=== PATIENT | female | born 1980 | race Caucasian/White ===

== ENCOUNTER 2016-12-24 09:11 | Inpatient (IN) ==
--- NOTE | 2016-12-23 20:50 | Discharge Summary ---
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 (3) Migraines Priority: Secondary Status: Chronic Qualifiers: Migraine type: unspecified Status migrainosus presence: without status migrainosus Intractability: not intractable Qualified Code(s): G43.909 - Migraine, unspecified, not intractable, without status migrainosus - Discharge Medications Home Medications: Melatonin 10 mg PO HS PRN 01/29/16 [History] DiphenhydraMINE [Benadryl] 25 - 50 mg PO HS PRN 11/26/16 [History] Ibuprofen [Motrin] 600 mg PO Q8HR PRN 12/24/16 [History] OxyCODONE Immed Rel [Roxicodone 5 MG] 5 mg PO Q4H PRN 12/24/16 [History] Allergies/Adverse Reactions: 3 Allergy/AdvReac Type Severity Reaction Status Date / Time acetaminophen [From Fioricet] AdvReac Anxiety Verified 12/21/16 00:43 butalbital [From Fioricet] AdvReac Anxiety Verified 12/21/16 00:43 caffeine [From Fioricet] AdvReac Anxiety Verified 12/21/16 00:43 droperidol AdvReac Anxiety Verified 12/21/16 00:43 etomidate AdvReac Seizure Verified 12/24/16 09:44 gabapentin AdvReac Headache Verified 12/24/16 10:07 ketamine AdvReac Hallucinati Verified 12/21/16 00:43 ng metoclopramide [From Reglan] AdvReac Agitated Verified 12/24/16 09:44 prochlorperazine AdvReac Agitated Verified 12/24/16 09:44 [From Compazine] Primary care physician: PCP NONE - Patient Status Disposition: Home, Self-Care Condition: Good - Discharge Instructions Follow Up With: NONE,PCP [Primary Care Provider] - - Hospital Course Hospital course: Ms. Justice is a 36 year old female - Time Spent with Patient Total time spent providing and/or coordinating discharge services: - VTE Documentation of Mechanical Device: Venous foot pump, device <Rod Sunshine - Last Filed: 12/25/16 08:38> Date of Encounter: 12/25/16 Time of Encounter: 08:37 - Discharge Diagnosis (1) Obesity (BMI 30.0-34.9) Priority: Secondary Status: Chronic (2) Dislocation of left shoulder joint Priority: Primary Status: Acute Qualifiers: Encounter type: subsequent encounter Qualified Code(s): S43.005D - Unspecified dislocation of left shoulder joint, subsequent encounter (3) Selma-Danlos syndrome Priority: Secondary Status: Chronic (4) Migraines Priority: Secondary Status: Chronic Qualifiers: Migraine type: unspecified Status migrainosus presence: without status migrainosus Intractability: not intractable Qualified Code(s): G43.909 - Migraine, unspecified, not intractable, without status migrainosus Primary care physician: PCP NONE - Patient Status Functional capacity at discharge: independent ambulation Overall status at discharge: patient is progressing back to baseline - Hospital Course Hospital course: Ms. Justice is a 36 year old female Status post left total shoulder replacement. The patient had an uneventful postoperative course. They received antibiotics and physical therapy and were discharged in stable condition. There will follow -up in the office in 2 weeks. - Time Spent with Patient Total time spent providing and/or coordinating discharge services:
[2016-12-24] MEDS ORDERED: CeFAZolin Pre 2,000 MG/100 ML 2,000 MG/100 ML BAG IVPB ONE (09:40)
[2016-12-24] MEDS ORDERED: Lidocaine -MPF 1% 2 ML VIAL ID ONE (09:40)
[2016-12-24] MEDS ORDERED: Ringers Solution, Lactated 1,000 ML IVC SCH ×3 (09:45→13:00)
--- NOTE | 2016-12-24 10:02 | History & Physical Report ---
Date of Encounter: 12/24/16 Time of Encounter: 10:01 24 Hour HP Update - Instructions Instructions: If the History and Physical is less than 30 days old and was completed prior to A.M. admission and or procedure and has NOT been updated on calendar day of procedure please complete this update prior to performing procedure. - Update Patient reports changes in Medical Condition: No Changes in examination, assessment, or condition: No Changes in Medication: No Preop tests/diagnostics Reviewed: Yes Surgery Remains Indicated: Yes Consent for Planned Operative Procedure(s) Verified: Yes - Pre-Operative Checklist Preoperative Checklist Indicated: No Prophylactic Antibiotic Ordered: Yes Is VTE Prophylaxis Indicated?: Yes
[2016-12-24] MEDS ORDERED: *HR* FentaNYL (PF) 100 MCG/2 ML VIAL ONE (10:06)
[2016-12-24] MEDS ORDERED: *HR* Propofol 200 MG/20 ML VIAL IVP ONE ×2 (10:06→10:58)
[2016-12-24] MEDS ORDERED: *HR* Midazolam HCl 2 MG/2 ML VIAL ONE (10:06)
[2016-12-24] MEDS ORDERED: ROPIVACAINE HCL/PF 0.5% 30 ML VIAL ONE (10:07)
[2016-12-24] MEDS ORDERED: Lidocaine -MPF 2% 2 ML VIAL ONE (10:07)
--- NOTE | 2016-12-24 10:07 | Anesthesia Evaluation PreOp ---
Date of Encounter: 12/24/16 Time of Encounter: 10:05 - Past History Planned Operation: L total shoulder Cardiac History: Denies any Significant Hx Pulmonary History: Denies Any Significant HX ETCHER ELECTROLYTIC History: Denies Any Significant HX Other Medical History: Other (Selma danlos, hx Sweet's syndrome) Anesthesia History: Problems (woke up in the middle of surgery previously; myoclonus etomidate, bad hallucinations ketamine) Alcohol Use: none Drug use: none Medications and Allergies Melatonin 10 mg PO HS PRN 01/29/16 [History] DiphenhydraMINE [Benadryl] 25 - 50 mg PO HS PRN 11/26/16 [History] Ibuprofen [Motrin] 600 mg PO Q8HR PRN 12/24/16 [History] OxyCODONE Immed Rel [Roxicodone 5 MG] 5 mg PO Q4H PRN 12/24/16 [History] 3 Allergy/AdvReac Type Severity Reaction Status Date / Time acetaminophen [From Fioricet] AdvReac Anxiety Verified 12/21/16 00:43 butalbital [From Fioricet] AdvReac Anxiety Verified 12/21/16 00:43 caffeine [From Fioricet] AdvReac Anxiety Verified 12/21/16 00:43 droperidol AdvReac Anxiety Verified 12/21/16 00:43 etomidate AdvReac Seizure Verified 12/24/16 09:44 gabapentin AdvReac Headache Verified 12/24/16 10:07 ketamine AdvReac Hallucinati Verified 12/21/16 00:43 ng metoclopramide [From Reglan] AdvReac Agitated Verified 12/24/16 09:44 prochlorperazine AdvReac Agitated Verified 12/24/16 09:44 [From Compazine] - Meds/Allergy Pre-op Review Medications Reviewed: Yes Allergies Reviewed: Yes Beta Blockers on Current Med List: No Anesthesia Results - Labs Laboratory Tests 12/22/16 12/22/16 14:49 14:49 WBC 7.1 Hgb 12.5 Hct 39.4 Plt Count 271 Sodium 138 Potassium 4.6 H Chloride 102 Carbon Dioxide 27 BUN 13 Creatinine 0.79 Est GFR ( Amer) > 60 Est GFR (Non-Af Amer) > 60 BUN/Creatinine Ratio 16 Glucose 157 H Calculated Osmolality 289 - Imaging EKG: report reviewed, image reviewed (SINUS RHYTHM NONSPECIFIC T-WAVE ABNORMALITY) Anesthesia Exam Last Vital Signs Temp 98.9 F 12/24/16 09:39 Pulse 82 12/24/16 09:39 Resp 18 12/24/16 09:39 BP 107/74 12/24/16 09:39 Pulse Ox 94 12/24/16 09:39 Weight: 96 kg NPO (# of Hours): >> 8 hrs - HEENT Pupil (Motor): Pupils equal, EOMI Mallampati: II Teeth: Normal Oral Opening: Less than or equal to 3 - ETCHER ELECTROLYTIC LOC: Oriented ETCHER ELECTROLYTIC Motor: Normal RUE, Normal LUE, Normal RLE, Normal LLE, Normal Face - Cardiac Rhythm: Regular Murmur: None - Pulmonary Breath Sounds: bilateral Clear Respiratory Effort: Symmetrical Anesthesia Assess/Plan ASA Score: 3 Modified [place] Scale for Level of Consciousness: Cooperative, oriented, and tranquil Anesthetic Plan: General, Regional, Precautions (FOI intubation (heavily sedated )) Monitoring Plan: Standard Monitors Recovery Plan: PACU
[2016-12-24] MEDS ORDERED: Plasma-Lyte A (PH 7.4) 1,000 ML IVC SCH (10:15)
--- NOTE | 2016-12-24 10:45 | Anesthesia Procedures ---
Date of Encounter: 12/24/16 Time of Encounter: 10:42 Procedures: Anesthesia - Nerve Block Procedure Date: 12/24/16 Time: 10:43 Pre-op Diagnosis: Left shoulder arthritis Surgical Procedure: L tot shoulder Checklist: Correct Patient Identifier Correct side: Left Blood Thinner: No Monitor Applied: EKG, BP, Pulse Oximetry Supplemental Oxygen via Nasal Cannula (L/min): 3 Sedation: Versed (mg): 2 Sedation: Fentanyl (mcg): 100 Indication: Post Op Analgesia Pre-op Neuro Deficits: No Block Type: Supraclavicular Catheter placed: No Sterile Technique: Yes Ultrasound used: Yes Anatomy identified: Yes Visual spread of Local: Yes Neuro Stimulation: No Blood on Needle Aspiration: No Smooth Injection of Local: Yes Pain with Injection of Local: No Prep: Chlorhexadine Needle: 22 x 50 mm Stimuplex Local: Ropivacaine (0.5) Volume (cc): 30 Number of Attempts: 1 Complications: None/effective block Vitals: Vital Signs/O2 Sat, Most Current Temp Pulse Resp BP Pulse Ox 98.9 F 81 15 114/82 99 12/24/16 09:39 12/24/16 10:29 12/24/16 10:29 12/24/16 10:29 12/24/16 10:29 Comments: aseptic, tolerated well, VSS
[2016-12-24] MEDS ORDERED: Dexamethasone 4 MG/ML VIAL ONE (11:07)
[2016-12-24] MEDS ORDERED: Ondansetron 4 MG/2 ML VIAL ONE (11:07)
[2016-12-24] MEDS ORDERED: EPHEDrine 50 MG/ML VIAL ONE (11:34)
[2016-12-24] MEDS ORDERED: *HR* HYDROmorphone (PF) 1 MG/ML SYRINGE IVP PRN (11:36)
--- NOTE | 2016-12-24 11:57 | Orthopedic Operative Note ---
Date of procedure: 12/24/16 Pre-op diagnosis: Dislocated left shoulder Post-op diagnosis: same Procedure: Procedure: Total Shoulder Replacment Reverse, left Estimated blood loss: 100 cc Hardware: Metal and polyethylene replacement: Arthrex medium glenoid baseplate , 2 4.5 screws. 1 6.5 screw, 39+4 glenosphere, 7 humeral stem, poly insert 3 constrained Exam Under anesthesia: Dislocated left shoulder easily reducible Procedural Notes: Patient with globally unstable left shoulder secondary to Selma-Danlos syndrome Operative procedure: The patient was brought to the operating room and placed on the operating room table. After general anesthesia was administered the operative shoulder was examined. Findings were noted. The patient was placed in the modified beachchair position. All pressure points were padded appropriately. And the head was stabilized in the neutral position. The operative extremity was prepped and draped in the sterile surgical fashion. The patient received IV antibiotics prior to skin incision. A standard deltopectoral approach was made to the operative shoulder. Incision was made to the skin and subcutaneous tissue,hemo stasis was obtained with Bovie cautery. Using careful blunt dissection the cephalic vein was identified and mobilized medially. The deltopectoral interval was developed and the clavipectoral fascia was incised. The subscap was released off the lesser tuberosity and tagged with #2 FiberWire suture subscap was irreparable. The humerus was already dislocated the humeral cut was made along the anatomic neck. Anterior and posterior Bankart retractors were placed to expose the glenoid. The glenoid guide was seated and the centering hole was made. It was reamed with the appropriate reamer. Medium baseplate was seated and secured with (2) 4.5 screws and one 6.5 screw. The baseplate was irrigated and dried and the 30 plus 4 Glenosphere was seated and secured with the Keen taper. The Keen taper was tested and found to be secure the humerus was redislocated and prepared with the diaphyseal reamers, followed by a broaching process up to the appropriate size 7 in the patient's anatomic version. The metaphyseal reamer was then utilized. Trial reduction found the shoulder to be relocatable. Trial components were removed and the appropriate 7 stem was impacted in place in the patient's anatomic version. Trial reduction found the shoulder to be relocatable and stable with the appropriate 3 constrained Trial component was removed and the real implant was seated and secured the shoulder was reduced. The shoulder had excellent motion and excellent stability and no evidence of dislocation. The deep tissue was irrigated with pulse irrigation. The PA closed the shoulder. The deltopectoral interval was closed with a running #1 PDS suture, subcutaneous tissue was irrigated and closed with 0 PDS suture, the skin was closed with Dermabond. The patient was placed in a sterile dressing, abduction brace and extubated. The patient was then transferred to the recovery room in stable condition. Anesthesia: NELSON Surgeon: Rod Sunshine Sales And Marketing Engineer: Kamilah Olsen Condition: stable Disposition: PACU
[2016-12-24 12:26] LABS: Hemoglobin 11.6 g/dL (11.5-15.4)
--- NOTE | 2016-12-24 12:26 | Anesthesia Evaluation Post Op ---
Date of Encounter: 12/24/16 Time of Encounter: 12:26 - Vital Signs Vital Signs: Vital Signs/O2 Sat/Glucose, Most Recent Temp Pulse Resp BP Pulse Ox 98.2 F 104 16 107/66 100 12/24/16 12:05 12/24/16 12:05 12/24/16 12:05 12/24/16 12:05 12/24/16 12:05 - Lungs Lungs: Clear Ascult./Percussion - Airway Airway: Non-obstructed - Cardiovascular Regular Rate - Mental Status Mental Status: Alert & Oriented, Answers Appropriately - Pain Pain Scale: 0 Pain Scale used: Numeric (1 - 10) - Nausea Vomiting Nausea Vomiting: Not Present - Hydration Hydration: NPO - Discharge PostOp Status: Transfer Patient to floor
[2016-12-24] MEDS: *HR* Promethazine 25 MG/ML VIAL IVP PRN ×2 (12:30→12:40)
[2016-12-24] MEDS ORDERED: *HR* Promethazine 25 MG/ML VIAL ONE (12:34)
[2016-12-24] MEDS ORDERED: Ringers Solution, Lactated 1,000 ML ONE (12:37)
[2016-12-24] MEDS ORDERED: Sennosides 8.6 MG TABLET PO PRN (12:47)
[2016-12-24] MEDS ORDERED: *HR* OxyCODONE Immed Rel 5 MG TABLET PO PRN (12:47)
[2016-12-24] MEDS ORDERED: Naloxone 0.4 MG/ML INJ IVP PRN (12:47)
[2016-12-24] MEDS ORDERED: Ondansetron 4 MG/2 ML VIAL IVP PRN (12:47)
[2016-12-24] MEDS ORDERED: Famotidine 20 MG/2 ML VIAL IVP PRN (13:18)
[2016-12-24] MEDS: *HR* HYDROmorphone (PF) 1 MG/ML SYRINGE IVP PRN ×3 (13:23→23:04)
[2016-12-24] MEDS: *HR* OxyCODONE Immed Rel 5 MG TABLET PO PRN ×2 (15:03→21:11)
[2016-12-24] MEDS: *HR* Enoxaparin 30 MG/0.3 ML SYRINGE SQ SCH (17:23)
[2016-12-24] MEDS: ceFAZolin 2,000 MG in D5% in Water 100 ML IVPB SCH (17:23)
[2016-12-24] MEDS ORDERED: *HR* Enoxaparin 30 MG/0.3 ML SYRINGE SQ SCH (18:00)
[2016-12-24] MEDS ORDERED: Temazepam 15 MG CAPSULE PO PRN (21:00)
[2016-12-24] MEDS ORDERED: MOM Conc 10 ML UD.LIQ PO PRN (21:00)
[2016-12-24] MEDS ORDERED: Melatonin 3 MG TABLET PO PRN (21:00)
[2016-12-25] MEDS: ceFAZolin 2,000 MG in D5% in Water 100 ML IVPB SCH (01:05)
[2016-12-25] MEDS: *HR* HYDROmorphone (PF) 1 MG/ML SYRINGE IVP PRN ×5 (01:05→10:02)
[2016-12-25] MEDS: *HR* OxyCODONE Immed Rel 5 MG TABLET PO PRN ×3 (02:12→11:46)
[2016-12-25] MEDS ORDERED: Ketorolac 30 MG/ML VIAL IVP PRN ×2 (03:32→04:37)
[2016-12-25] MEDS ORDERED: Acetaminophen IV 1,000 MG/100 ML INFUS..BTL IVPB ONE (03:33)
[2016-12-25] MEDS: Acetaminophen IV 1,000 MG/100 ML INFUS..BTL IVPB SCH ×2 (05:08→13:16)
[2016-12-25] MEDS: *HR* Enoxaparin 30 MG/0.3 ML SYRINGE SQ SCH (05:13)
[2016-12-25 06:17] LABS: Hematocrit 32.6 % (35.3-44.9); Hemoglobin 11.1 g/dL (11.5-15.4)
[2016-12-25 07:47] VITALS: BP 116/72
--- NOTE | 2016-12-25 08:39 | Orthopedics Progress Note ---
Date of Encounter: 12/25/16 Time of Encounter: 08:38 - Assessment and Plan (1) Obesity (BMI 30.0-34.9) Current Visit: Yes Status: Chronic (2) Dislocation of left shoulder joint Current Visit: No Status: Acute Qualifiers: Encounter type: subsequent encounter Qualified Code(s): S43.005D - Unspecified dislocation of left shoulder joint, subsequent encounter (3) Selma-Danlos syndrome Current Visit: No Status: Chronic (4) Migraines Current Visit: No Status: Chronic Qualifiers: Migraine type: unspecified Status migrainosus presence: without status migrainosus Intractability: not intractable Qualified Code(s): G43.909 - Migraine, unspecified, not intractable, without status migrainosus Subjective Interval history: Patient was seen this morning doing well complains of left shoulder pain after block or off. Afebrile vital signs stable. Operative extremity: Neurovascularly intact Dressing clean dry and intact Calves nontender Assessment and plan: Continue with postoperative care Discharged today Objective Vital signs: Vital Signs Temp Pulse Resp BP Pulse Ox 12/25/16 07:47 98.9 F 80 16 116/72 97 12/25/16 04:45 99.0 F 91 18 116/76 95 12/25/16 01:18 116/72 12/24/16 23:27 99.0 F 89 17 91/59 94 12/24/16 19:47 98.0 F 90 18 100/69 95 12/24/16 16:00 98.2 F 103 15 100/68 95 12/24/16 15:09 97.7 F 93 14 113/75 96 12/24/16 14:05 97.6 F 91 18 110/75 95 12/24/16 13:36 97.6 F 91 16 118/81 96 12/24/16 13:27 97 12/24/16 12:53 99 16 119/88 98 12/24/16 12:48 97.5 F L 92 14 124/85 96 12/24/16 12:45 98 16 122/84 98 12/24/16 12:35 98.2 F 97 14 122/82 95 12/24/16 12:25 92 18 123/80 94 12/24/16 12:15 97 18 123/76 95 12/24/16 12:05 98.2 F 104 16 107/66 100 12/24/16 10:29 81 15 114/82 99 12/24/16 09:39 98.9 F 82 18 107/74 94 Intake and Output 12/24/16 12/25/16 12/25/16 23:59 07:59 15:59 Intake Total 600 / 600 580 / 580 Balance 600 / 600 580 / 580 Intake: IV Fluids 100 / 100 100 / 100 Ofirmev 1,000 mg/100 ml 1,000 100 / 100 mg In 100 ml @ 400 mls/hr IVPB ONCE ONE Rx#:[id number] Ancef 2,000 MG In Dextrose 5% 100 / 100 100 ML @ 200 mls/hr IVPB Q8H HYUN Rx#:[id number] Oral 500 / 500 480 / 480 Other: # Voids 5 1 - Labs CBC & BMP: 12/25/16 05:08 Labs: Abnormal lab results Hgb 11.1 g/dL (11.5-15.4) L 12/25/16 05:08 Hct 32.6 % (35.3-44.9) L 12/25/16 05:08 - VTE Documentation of Mechanical Device: Intermittent pneumatic compression device Consult Discharge Plan - Plan Referrals: NONE,PCP [Primary Care Provider] -
--- NOTE | 2016-12-25 12:55 | Event Note ---
Date of Encounter: 12/25/16 Time of Encounter: 12:51 PCR - Left TSR-r - Selma Yeh POD#.1 Labs: 12/25 - stable Patient seen at bedside. Pain control: discussed in depth 12/25 - Lidoderm patch added, D/C'ing IV pain medication this afternoon We discussed pain control in depth - will write new RX to allow for appropriate control of acute pain. REgulations and laws reviewed with patient. Patient voiced understanding. Participating in PT. All questions and concerns addressed. Educated on use of incentive spirometer, ambulation, and hydration. Patient educated on post-operative restrictions and care. Addressed: Pain control, new RX printed. D/C plan: Home 12/26 with HH Patient has Selma Dangins, with multiple shoulder dislocations, a recent shoulder arthroscopy, that resulted in a dislocation. She then underwent a Left TSR-reverse ball and socket to correct these issues. Patient would benefit from a resin painter; however at this time she does have one. We will aim to control her acute pain through Oxycodone - 2 tabs every 4 hours for the next 3-5 days, with the intention to taper down to 1 tablet over this time. This was discussed in depth with the patient. She also is taking Tylenol, NSAIDS for breakthrough pain.
--- NOTE | 2016-12-25 22:19 | Physician Discharge Referral ---
Home Health/Hosp Referral Info Transfer to: Home Health Attending Provider: Dr. Rod Sunshine - Diagnosis (1) Status post total shoulder replacement Priority: Primary Status: Acute (2) Dislocation of left shoulder joint Priority: Primary Status: Acute (3) Selma-Danlos syndrome Priority: Secondary Status: Chronic (4) Migraines Priority: Secondary Status: Chronic - Respiratory Orders Smoking Cessation: Smoking cessation has been advised. For more information, call the [place] Tobacco Quit Line at 8-334-VATB-NOW. - Dressing/Wound Care Site: left shoulder Type of Dressing/Treatments w/Frequency: Opsite dressing, leave intact until first post-operative visit. If dressing becomes greater than 50% saturated, contact office, remove dressing and place appropriate dressing in its place. Do not allow for dressing to get wet. - Diet/Nutrition Diet/Nutrition Orders: Regular - Activity Activity Orders: Up ad bob, Ambulate, Chair Activity: List: Leave brace in place. Minimal shoulder motion. Encourage elbow, wrist, and hand ROM. - Services Needed Following services are medically necessary services: Physical Therapy, Occupational Therapy - Transfer Medications Prescriptions: OxyCODONE Immed Rel [Roxicodone 5 MG] 5 - 10 mg PO Q4HR PRN #60 tablet PRN Reason: Pain Home Medications: Melatonin 10 mg PO HS PRN 01/29/16 [History] DiphenhydraMINE [Benadryl] 25 - 50 mg PO HS PRN 11/26/16 [History] Ibuprofen [Motrin] 600 mg PO Q8HR PRN 12/24/16 [History] OxyCODONE Immed Rel [Roxicodone 5 MG] 5 mg PO Q4H PRN 12/24/16 [History] OxyCODONE Immed Rel [Roxicodone 5 MG] 5 - 10 mg PO Q4HR PRN #60 tablet 12/25/16 [Rx] Allergies/Adverse Reactions: 3 Allergy/AdvReac Type Severity Reaction Status Date / Time acetaminophen [From Fioricet] AdvReac Anxiety Verified 12/21/16 00:43 butalbital [From Fioricet] AdvReac Anxiety Verified 12/21/16 00:43 caffeine [From Fioricet] AdvReac Anxiety Verified 12/21/16 00:43 droperidol AdvReac Anxiety Verified 12/21/16 00:43 etomidate AdvReac Seizure Verified 12/24/16 09:44 gabapentin AdvReac Headache Verified 12/24/16 10:07 ketamine AdvReac Hallucinati Verified 12/21/16 00:43 ng metoclopramide [From Reglan] AdvReac Agitated Verified 12/24/16 09:44 prochlorperazine AdvReac Agitated Verified 12/24/16 09:44 [From Compazine] Certification: Further, I certify that my clinical findings support that this patient is homebound (i.e. absences from home require considerable and taxing effort and are for medical reasons or congregation services or infrequently or short duration when for other reasons) because: Homebound Reason: Post-surgery restriction and or conditions limit ability to leave home Attestation: My signature below is to certify that this patient is under my care and that I, or nurse practitioner, or a physician customer service assistant working with me, has a face-to- face encounter with this patient.
--- NOTE | 2016-12-25 22:24 | Physician Discharge Referral ---
<Kamilah Olsen E - Last Filed: 12/29/16 16:12> Home Health/Hosp Referral Info Transfer to: Home Health Attending Provider: Dr. 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 For more information, call the [place] Tobacco Quit Line at 6-939-VFMV-NOW. - Dressing/Wound Care Site: left shoulder Type of Dressing/Treatments w/Frequency: Leave dressing in place Do not get wet If dressing becomes greater than 50% saturated then change to appropriate replacement and contact [facility] office - Diet/Nutrition Diet/Nutrition Orders: Regular - Activity Activity Orders: Up ad bob, Ambulate Activity: List: Total shoulder precautions Limited use left upper extremity - continue in sling as directed. Elbow and Wrist ROM - NO strengthening Prineo to be removed at Post op day 14 - Services Needed Following services are medically necessary services: Nursing, Home Health Aide - Transfer Medications Prescriptions: OxyCODONE Immed Rel [Roxicodone 5 MG] 5 - 10 mg PO Q4HR PRN #60 tablet PRN Reason: Pain Home Medications: Melatonin 10 mg PO HS PRN 01/29/16 [History] DiphenhydraMINE [Benadryl] 25 - 50 mg PO HS PRN 11/26/16 [History] Ibuprofen [Motrin] 600 mg PO Q8HR PRN 12/24/16 [History] OxyCODONE Immed Rel [Roxicodone 5 MG] 5 mg PO Q4H PRN 12/24/16 [History] OxyCODONE Immed Rel [Roxicodone 5 MG] 5 - 10 mg PO Q4HR PRN #60 tablet 12/25/16 [Rx] Allergies/Adverse Reactions: 3 Allergy/AdvReac Type Severity Reaction Status Date / Time acetaminophen [From Fioricet] AdvReac Anxiety Verified 12/21/16 00:43 butalbital [From Fioricet] AdvReac Anxiety Verified 12/21/16 00:43 caffeine [From Fioricet] AdvReac Anxiety Verified 12/21/16 00:43 droperidol AdvReac Anxiety Verified 12/21/16 00:43 etomidate AdvReac Seizure Verified 12/24/16 09:44 gabapentin AdvReac Headache Verified 12/24/16 10:07 ketamine AdvReac Hallucinati Verified 12/21/16 00:43 ng metoclopramide [From Reglan] AdvReac Agitated Verified 12/24/16 09:44 prochlorperazine AdvReac Agitated Verified 12/24/16 09:44 [From Compazine] Certification: Further, I certify that my clinical findings support that this patient is homebound (i.e. absences from home require considerable and taxing effort and are for medical reasons or jewish services or infrequently or short duration when for other reasons) because: Attestation: My signature below is to certify that this patient is under my care and that I, or nurse practitioner, or a physician banking assistant working with me, has a face-to- face encounter with this patient. <Rod Sunshine - Last Filed: 12/31/16 07:50> - Diagnosis (1) Obesity (BMI 30.0-34.9) Status: Chronic (2) Dislocation of left shoulder joint Status: Acute (3) Selma-Danlos syndrome Status: Chronic (4) Migraines Status: Chronic - Respiratory Orders Smoking Cessation: Smoking cessation has been advised. For more information, call the [place] Tobacco Quit Line at 2-746-LVZR-NOW. Certification: Further, I certify that my clinical findings support that this patient is homebound (i.e. absences from home require considerable and taxing effort and are for medical reasons or jewish services or infrequently or short duration when for other reasons) because: Attestation: My signature below is to certify that this patient is under my care and that I, or nurse practitioner, or a physician's banking assistant working with me, has a face-to -face encounter with this patient.
== END 2016-12-25 14:17 | disposition home or self-care (01) | DRG 483 ==
LOC: SAMDAY 09:11 → 3NENU 12:54
PROVIDERS: ADMIT Orthopaedic Surgery; ATTEND Orthopaedic Surgery

== ENCOUNTER 2017-02-06 12:31 | Inpatient (IN) ==
--- NOTE | 2017-02-06 11:57 | Discharge Summary ---
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 (4) Migraines Priority: Secondary Status: Chronic Qualifiers: Migraine type: unspecified Status migrainosus presence: without status migrainosus Intractability: not intractable Qualified Code(s): G43.909 - Migraine, unspecified, not intractable, without status migrainosus (5) Obesity (BMI 30.0-34.9) Priority: Secondary Status: Chronic - Discharge Medications Home Medications: Melatonin 10 mg PO HS PRN 01/29/16 [History] DiphenhydraMINE [Benadryl] 25 - 50 mg PO HS PRN 11/26/16 [History] ALPRAZolam [Xanax 0.5 MG Tablet] 0.5 mg PO HS PRN 02/06/17 [History] Metoprolol XL (24 HR) Succ [Toprol XL] 25 mg PO DAILY 02/06/17 [History] OxyCODONE Immed Rel [Roxicodone 5 MG] 5 mg PO Q4HR PRN #30 tablet 02/06/17 [Rx] Oxycodone HCl [Oxycodone HCl] 5 mg PO Q6H PRN 02/06/17 [History] Allergies/Adverse Reactions: 3 Allergy/AdvReac Type Severity Reaction Status Date / Time butalbital [From Fioricet] AdvReac Anxiety Verified 02/06/17 13:25 caffeine [From Fioricet] AdvReac Anxiety Verified 02/06/17 13:25 droperidol AdvReac Anxiety Verified 02/06/17 13:25 etomidate AdvReac Seizure Verified 02/06/17 13:25 gabapentin AdvReac Headache Verified 02/06/17 13:25 ketamine AdvReac Hallucinati Verified 02/06/17 13:25 ng metoclopramide [From Reglan] AdvReac Agitated Verified 02/06/17 13:25 prochlorperazine AdvReac Agitated Verified 02/06/17 13:25 [From Compazine] Primary care physician: Kevin Monreal MD - Patient Status Disposition: Home, Self-Care Condition: Good Functional capacity at discharge: uses cane/walker Overall status at discharge: patient is progressing back to baseline - Discharge Instructions Follow Up With: Kevin Monreal MD [Primary Care Provider] - - Hospital Course Hospital course: Ms. Justice is a 36 year old female Status post right total shoulder replacement. Patient with pain control issues seems to be doing better today. The patient had an uneventful postoperative course. They received antibiotics and physical therapy and were discharged in stable condition. There will follow -up in the office in 2 weeks. - Time Spent with Patient Total time spent providing and/or coordinating discharge services:
[2017-02-06] MEDS ORDERED: CeFAZolin Syr 2,000MG/20 ML 2,000 MG/20 ML SYRINGE IVPB ONE (13:08)
[2017-02-06] MEDS ORDERED: Ringers Solution, Lactated 1,000 ML IVC SCH ×2 (13:15→18:06)
--- NOTE | 2017-02-06 13:53 | History & Physical Report ---
Date of Encounter: 02/06/17 Time of Encounter: 13:53 24 Hour HP Update - Instructions Instructions: If the History and Physical is less than 30 days old and was completed prior to A.M. admission and or procedure and has NOT been updated on calendar day of procedure please complete this update prior to performing procedure. - Update Patient reports changes in Medical Condition: No Changes in examination, assessment, or condition: No Changes in Medication: No Preop tests/diagnostics Reviewed: Yes Surgery Remains Indicated: Yes Consent for Planned Operative Procedure(s) Verified: Yes - Pre-Operative Checklist Preoperative Checklist Indicated: No Prophylactic Antibiotic Ordered: Yes Is VTE Prophylaxis Indicated?: Yes
--- NOTE | 2017-02-06 14:19 | Anesthesia Evaluation PreOp ---
Date of Encounter: 02/06/17 Time of Encounter: 14:17 - Past History Planned Operation: Right Total Shoulder Cardiac History: HTN, Other (MVP) Pulmonary History: Denies Any Significant HX DRAWER WAXER History: Denies Any Significant HX Other Medical History: Other (Ehler-Danlos Syndrome) Anesthesia History: Past Anesthesia, Problems (myoclonus with etomidate, awoke during surgery), Difficult Airway (FOI due to very limited mouth opening) Test: Negative (02/03/2017) Alcohol Use: none Drug use: none Medications and Allergies Melatonin 10 mg PO HS PRN 01/29/16 [History] DiphenhydraMINE [Benadryl] 25 - 50 mg PO HS PRN 11/26/16 [History] ALPRAZolam [Xanax 0.5 MG Tablet] 0.5 mg PO HS PRN 02/06/17 [History] Metoprolol XL (24 HR) Succ [Toprol XL] 25 mg PO DAILY 02/06/17 [History] OxyCODONE Immed Rel [Roxicodone 5 MG] 5 mg PO Q4HR PRN #30 tablet 02/06/17 [Rx] Oxycodone HCl [Oxycodone HCl] 5 mg PO Q6H PRN 02/06/17 [History] 3 Allergy/AdvReac Type Severity Reaction Status Date / Time acetaminophen [From Fioricet] AdvReac Anxiety Verified 02/06/17 13:25 butalbital [From Fioricet] AdvReac Anxiety Verified 02/06/17 13:25 caffeine [From Fioricet] AdvReac Anxiety Verified 02/06/17 13:25 droperidol AdvReac Anxiety Verified 02/06/17 13:25 etomidate AdvReac Seizure Verified 02/06/17 13:25 gabapentin AdvReac Headache Verified 02/06/17 13:25 ketamine AdvReac Hallucinati Verified 02/06/17 13:25 ng metoclopramide [From Reglan] AdvReac Agitated Verified 02/06/17 13:25 prochlorperazine AdvReac Agitated Verified 02/06/17 13:25 [From Compazine] - Meds/Allergy Pre-op Review Medications Reviewed: Yes Allergies Reviewed: Yes Beta Blockers on Current Med List: Yes If Beta Blockers taken, Date/Time (Last Dose taken): 02/05/2017 at 2100 Anesthesia Results - Labs Laboratory Tests 02/03/17 02/03/17 02/03/17 10:25 10:25 10:25 WBC 8.3 Hgb 13.1 Hct 40.4 Plt Count 260 PT 9.5 INR 0.9 APTT 29.4 Sodium 139 Potassium 3.7 BUN 11 Creatinine 0.68 - Imaging EKG: report reviewed (01/15/2017 SINUS RHYTHM LOW QRS VOLTAGE IN PRECORDIAL LEADS NONSPECIFIC T-WAVE ABNORMALITY) Anesthesia Exam O2 Sat Height 1.73 m Height 1.73 m Height 1.73 m Weight 101.151 kg Weight 101.151 kg Weight 101.151 kg O2 Sat by Pulse Oximetry 99 Vital Signs Temp Pulse Resp BP Pulse Ox 98.4 F 85 18 112/75 99 02/06/17 13:09 02/06/17 13:09 02/06/17 13:09 02/06/17 13:09 02/06/17 13:09 Height: 5'8'' Weight: 223 lbs NPO (# of Hours): 8 Pain Scale: 3 Pain Scale Used: Numeric (1 - 10) - HEENT Pupil (Motor): EOMI Mallampati: IV (very limited mouth opening) Teeth: Normal Oral Opening: Less than or equal to 3 - DRAWER WAXER LOC: Oriented DRAWER WAXER Motor: Normal RUE, Normal RLE, Normal LLE, Normal Face, Deficit LUE DRAWER WAXER Sensory: Normal: RUE, LUE, RLE, LLE, Face - Cardiac Rhythm: Regular Murmur: None - Pulmonary Breath Sounds: bilateral Clear Respiratory Effort: Symmetrical Anesthesia Assess/Plan ASA Score: 3 Modified Sean Scale for Level of Consciousness: Cooperative, oriented, and tranquil Anesthetic Plan: General, Regional Monitoring Plan: Standard Monitors Recovery Plan: PACU
[2017-02-06] MEDS ORDERED: ROPIVACAINE HCL/PF 0.5% 30 ML VIAL ONE (14:33)
[2017-02-06] MEDS ORDERED: *HR* Midazolam HCl 2 MG/2 ML VIAL ONE (14:34)
[2017-02-06] MEDS ORDERED: *HR* FentaNYL (PF) 100 MCG/2 ML VIAL ONE (14:34)
--- NOTE | 2017-02-06 14:52 | Anesthesia Procedures ---
Date of Encounter: 02/06/17 Time of Encounter: 14:35 Procedures: Anesthesia - Nerve Block Procedure Date: 02/06/17 Time: 14:35 Allergies/Adv Reactions: multiple see chart Pre-op Diagnosis: right shoulder instability Surgical Procedure: right total shoulder Checklist: Correct Patient Identifier, Correct procedure, History checked (with Dr Caro) Correct side: Right Blood Thinner: No Monitor Applied: EKG, BP, Pulse Oximetry Supplemental Oxygen via Nasal Cannula (L/min): 2 Sedation: Versed (mg): 2 Sedation: Fentanyl (mcg): 100 Indication: Post Op Analgesia Pre-op Neuro Deficits: No Block Type: Supraclavicular Catheter placed: No Sterile Technique: Yes Ultrasound used: Yes Anatomy identified: Yes Visual spread of Local: Yes Neuro Stimulation: No Blood on Needle Aspiration: No Smooth Injection of Local: Yes Pain with Injection of Local: No Prep: Chlorhexadine Needle: 22 x 50 mm Stimuplex Local: Ropivacaine Volume (cc): 30 ml 0.5% Number of Attempts: 1 Complications: None/effective block Vitals: 3 Vital Signs Time 1435 1445 BP 132/93 115/85 Pulse 86 86 Resp 16 16 O2 Sat 98 98
[2017-02-06] MEDS ORDERED: Lidocaine -MPF 2% 2 ML VIAL ONE (15:01)
[2017-02-06] MEDS ORDERED: *HR* Propofol 200 MG/20 ML VIAL IVP ONE ×3 (15:01→16:45)
[2017-02-06] MEDS ORDERED: Lidocaine -MPF 4% 5 ML AMPUL ONE (15:01)
[2017-02-06] MEDS ORDERED: *HR* Succinylcholine 200 MG/10 ML VIAL IVP ONE (15:01)
[2017-02-06] MEDS ORDERED: *HR* Rocuronium Bromide 50 MG/5 ML VIAL ONE (15:01)
[2017-02-06] MEDS ORDERED: Dexamethasone 4 MG/ML VIAL ONE (15:01)
[2017-02-06] MEDS ORDERED: Ondansetron 4 MG/2 ML VIAL ONE (15:01)
[2017-02-06] MEDS ORDERED: *HR* Labetalol 20 MG/4 ML SYRINGE IVP PRN (16:40)
[2017-02-06] MEDS ORDERED: Ondansetron 4 MG/2 ML VIAL IVP ONE (16:40)
[2017-02-06] MEDS ORDERED: *HR* Morphine 2 MG/ML SYRINGE IVP PRN (16:40)
--- NOTE | 2017-02-06 16:57 | Orthopedic Operative Note ---
Date of procedure: 02/06/17 Pre-op diagnosis: Right shoulder instability Post-op diagnosis: same (Ellos Danlos syndrome) Procedure: Procedure: Total Shoulder Replacment Reverse, right Estimated blood loss: 100 cc Hardware: Metal and polyethylene replacement: Arthrex medium glenoid baseplate , 2 4.5 screws. 1 6.5 screw, 42+4 glenosphere, 7 humeral stem, poly insert a 3 3 constrained Exam Under anesthesia: Multidirectional instability. Procedural Notes: Hypermobile dislocatable Operative procedure: The patient was brought to the operating room and placed on the operating room table. After general anesthesia was administered the operative shoulder was examined. Findings were noted. The patient was placed in the modified beachchair position. All pressure points were padded appropriately. And the head was stabilized in the neutral position. The operative extremity was prepped and draped in the sterile surgical fashion. The patient received IV antibiotics prior to skin incision. A standard deltopectoral approach was made to the operative shoulder. Incision was made to the skin and subcutaneous tissue,hemo stasis was obtained with Bovie cautery. Using careful blunt dissection the cephalic vein was identified and mobilized medially. The deltopectoral interval was developed and the clavipectoral fascia was incised. The subscap was released off the lesser tuberosity and tagged with #2 FiberWire suture subscap was irreparable. The humerus was dislocated patient noted to have irreparable tear supraspinatus tendon, and the humeral cut was made along the anatomic neck. Anterior and posterior Bankart retractors were placed to expose the glenoid. The glenoid guide was seated and the centering hole was made. It was reamed with the appropriate reamer. A medium baseplate was seated and secured with (2) 4.5 screws and one 6.5 screw. The baseplate was irrigated and dried and the 42+4 Glenosphere was seated and secured with the Keen taper. The Keen taper was tested and found to be secure the humerus was redislocated and prepared with the diaphyseal reamers, followed by a broaching process up to the appropriate size 7 in the patient's anatomic version. The metaphyseal reamer was then utilized. Trial reduction found the shoulder to be relocatable. Trial components were removed The appropriate 7 stem was impacted in place in the patient's anatomic version. Trial reduction found the shoulder to be relocatable and stable with the appropriate 3 constrained Trial component was removed and the real 3 constrained was seated and secured the shoulder was reduced. The shoulder had excellent motion and excellent stability and no evidence of dislocation. The deep tissue was irrigated with pulse irrigation. The deltopectoral interval was closed with a running #1 PDS suture, subcutaneous tissue was irrigated and closed with 0 PDS suture, the skin was closed with zip tie. The patient was placed in a sterile dressing, abduction brace and extubated. The patient was then transferred to the recovery room in stable condition. Anesthesia: GETA Surgeon: Rod Sunshine Condition: stable Disposition: PACU
[2017-02-06] MEDS: *HR* HYDROmorphone (PF) 1 MG/ML SYRINGE IVP PRN ×5 (17:10→21:24)
--- NOTE | 2017-02-06 17:46 | Anesthesia Evaluation Post Op ---
Date of Encounter: 02/06/17 Time of Encounter: 17:45 - Vital Signs Vital Signs: Last Vital Signs Temp 97.6 F 02/06/17 17:09 Pulse 87 02/06/17 17:29 Resp 16 02/06/17 17:29 BP 117/91 02/06/17 17:29 Pulse Ox 91 02/06/17 17:29 - Lungs Lungs: Clear Ascult./Percussion - Airway Airway: Non-obstructed - Cardiovascular Regular Rate - Mental Status Mental Status: Alert & Oriented, Answers Appropriately - Pain Pain Scale: 3 - Nausea Vomiting Nausea Vomiting: Not Present - Hydration Hydration: NPO - Discharge PostOp Status: Transfer Patient to floor
[2017-02-06 17:54] LABS: Hematocrit 36.3 % (35.3-44.9)
[2017-02-06] MEDS ORDERED: *HR* Enoxaparin 30 MG/0.3 ML SYRINGE SQ SCH (18:00)
[2017-02-06] MEDS ORDERED: Naloxone 0.4 MG/ML INJ IVP PRN (18:06)
[2017-02-06] MEDS ORDERED: MOM Conc 10 ML UD.LIQ PO PRN (18:06)
[2017-02-06] MEDS ORDERED: 0.9 % Sodium Chloride 1,000 ML IVC SCH (18:06)
[2017-02-06] MEDS ORDERED: Temazepam 15 MG CAPSULE PO PRN (18:06)
[2017-02-06] MEDS ORDERED: ALPRAZolam 0.5 MG TABLET PO PRN (18:06)
[2017-02-06] MEDS ORDERED: Sennosides 8.6 MG TABLET PO PRN (18:06)
[2017-02-06] MEDS ORDERED: *HR* OxyCODONE Immed Rel 5 MG TABLET PO PRN (18:06)
[2017-02-06] MEDS ORDERED: Melatonin 3 MG TABLET PO PRN (18:06)
[2017-02-06] MEDS: *HR* OxyCODONE Immed Rel 5 MG TABLET PO PRN (19:59)
[2017-02-06] MEDS: *HR* LORazepam 2 MG/ML VIAL IVP PRN (20:00)
[2017-02-06] MEDS: Ondansetron 4 MG/2 ML VIAL IVP PRN (20:03)
[2017-02-07] MEDS: *HR* OxyCODONE Immed Rel 5 MG TABLET PO PRN ×2 (00:09→04:56)
[2017-02-07] MEDS: CeFAZolin Premix DUPLEX 2,000 MG/50 ML BAG IVPB SCH ×2 (00:53→09:24)
[2017-02-07] MEDS: Ondansetron 4 MG/2 ML VIAL IVP PRN (00:53)
[2017-02-07] MEDS: *HR* HYDROmorphone (PF) 1 MG/ML SYRINGE IVP PRN ×8 (01:15→22:50)
[2017-02-07] MEDS: *HR* LORazepam 2 MG/ML VIAL IVP PRN ×3 (02:16→21:10)
[2017-02-07 03:27] LABS: Hematocrit 35.8 % (35.3-44.9)
[2017-02-07] MEDS: *HR* Enoxaparin 30 MG/0.3 ML SYRINGE SQ SCH ×2 (04:58→17:04)
--- NOTE | 2017-02-07 06:28 | Orthopedics Progress Note ---
Date of Encounter: 02/07/17 Time of Encounter: 06:28 - Assessment and Plan (1) Dislocation of right shoulder joint Current Visit: No Status: Chronic Qualifiers: Encounter type: subsequent encounter Qualified Code(s): S43.004D - Unspecified dislocation of right shoulder joint, subsequent encounter (2) Status post total replacement of right shoulder Current Visit: No Status: Acute (3) Selma-Danlos syndrome Current Visit: No Status: Chronic (4) Migraines Current Visit: No Status: Chronic Qualifiers: Migraine type: unspecified Status migrainosus presence: without status migrainosus Intractability: not intractable Qualified Code(s): G43.909 - Migraine, unspecified, not intractable, without status migrainosus (5) Obesity (BMI 30.0-34.9) Current Visit: No Status: Chronic Subjective Interval history: Patient was seen this morning doing well without complaints. Afebrile vital signs stable. Operative extremity: Neurovascularly intact Dressing clean dry and intact Calves nontender Assessment and plan: Continue with postoperative care Hematocrit 35 Objective Vital signs: Vital Signs Temp Pulse Resp BP Pulse Ox 02/07/17 03:41 98 F 88 16 106/73 93 02/06/17 22:57 98.6 F 108 14 124/83 94 02/06/17 21:19 98.1 F 95 16 109/67 95 02/06/17 20:11 98.2 F 87 16 118/72 94 02/06/17 19:20 98.2 F 84 16 118/72 94 02/06/17 19:18 98 F 81 16 118/65 93 02/06/17 18:45 98.0 F 76 17 119/72 94 02/06/17 18:30 98.0 F 81 14 116/80 94 02/06/17 18:15 98.0 F 81 14 116/80 94 02/06/17 17:49 97.8 F 82 14 122/81 93 02/06/17 17:39 97.8 F 77 13 120/70 93 02/06/17 17:29 87 16 117/91 91 02/06/17 17:19 92 18 122/77 94 02/06/17 17:09 97.6 F 94 14 118/81 93 02/06/17 15:26 88 16 122/78 97 02/06/17 14:44 88 15 115/85 99 02/06/17 14:35 84 15 132/93 98 02/06/17 13:09 98.4 F 85 18 112/75 99 Intake and Output 02/06/17 02/06/17 02/07/17 15:59 23:59 07:59 Intake Total 50 / 50 Output Total 100 / 100 Balance -100 / -100 50 / 50 Intake: IV Fluids 50 / 50 Ancef Premix DUPLEX 2,000 mg In 50 / 50 50 ml @ 100 mls/hr IVPB Q8HR HYUN Rx#:[id number] Output: Estimated Blood Loss 100 / 100 Other: # Voids 1 Weight 101.151 kg - Labs CBC & BMP: 02/07/17 02:58 - VTE Documentation of Mechanical Device: Venous foot pump, device Consult Discharge Plan - Plan Referrals: Kevin Monreal MD [Primary Care Provider] -
[2017-02-07] MEDS ORDERED: *HR* OxyCODONE/APAP 10/325 TABLET PO PRN (06:44)
[2017-02-07] MEDS ORDERED: *HR* OxyCODONE/APAP 5/325 TABLET PO PRN (06:53)
[2017-02-07] MEDS ORDERED: Water for inj. (sterile) 10 ML IV ONE (09:18)
[2017-02-07] MEDS: *HR* OxyCODONE/APAP 10/325 TABLET PO PRN ×3 (09:22→19:47)
[2017-02-07] MEDS: Metoprolol XL (24 HR) Succ 25 MG TAB.ER.24H PO SCH (09:30)
[2017-02-07] MEDS ORDERED: Acetaminophen IV 1,000 MG/100 ML INFUS..BTL IVPB ONE ×2 (11:32→18:54)
[2017-02-07] MEDS: Ketorolac 30 MG/ML VIAL IVP PRN ×2 (11:55→18:40)
[2017-02-08] MEDS: Ketorolac 30 MG/ML VIAL IVP PRN (01:31)
[2017-02-08] MEDS: *HR* OxyCODONE/APAP 10/325 TABLET PO PRN ×2 (01:34→08:41)
[2017-02-08] MEDS: *HR* HYDROmorphone (PF) 1 MG/ML SYRINGE IVP PRN ×2 (04:18→10:14)
[2017-02-08] MEDS: *HR* Enoxaparin 30 MG/0.3 ML SYRINGE SQ SCH (04:19)
[2017-02-08 05:46] LABS: Hematocrit 32.1 % (35.3-44.9); Hemoglobin 10.6 g/dL (11.5-15.4)
[2017-02-08 06:33] VITALS: BP 131/86
--- NOTE | 2017-02-08 06:48 | Orthopedics Progress Note ---
Date of Encounter: 02/08/17 Time of Encounter: 06:48 - Assessment and Plan (1) Dislocation of right shoulder joint Current Visit: No Status: Chronic Qualifiers: Encounter type: subsequent encounter Qualified Code(s): S43.004D - Unspecified dislocation of right shoulder joint, subsequent encounter (2) Status post total replacement of right shoulder Current Visit: No Status: Acute (3) Selma-Danlos syndrome Current Visit: No Status: Chronic (4) Migraines Current Visit: No Status: Chronic Qualifiers: Migraine type: unspecified Status migrainosus presence: without status migrainosus Intractability: not intractable Qualified Code(s): G43.909 - Migraine, unspecified, not intractable, without status migrainosus (5) Obesity (BMI 30.0-34.9) Current Visit: No Status: Chronic Subjective Interval history: Patient was seen this morning doing well without complaints. Afebrile vital signs stable. Operative extremity: Neurovascularly intact Dressing clean dry and intact Calves nontender Assessment and plan: Continue with postoperative care Discharge today Objective Vital signs: Vital Signs Temp Pulse Resp BP Pulse Ox 02/08/17 06:31 97.9 F 76 18 131/86 96 02/08/17 00:29 98.1 F 88 18 120/80 99 02/07/17 19:54 98.2 F 91 18 128/81 99 02/07/17 16:31 98.2 F 86 14 126/88 95 02/07/17 11:55 97.9 F 81 16 128/84 97 02/07/17 10:56 98 20 134/84 02/07/17 10:09 97 142/88 02/07/17 08:27 98.3 F 89 16 104/68 93 02/07/17 07:49 104/68 Intake and Output 02/07/17 02/07/17 02/08/17 15:59 23:59 07:59 Intake Total 531 / 531 100 / 100 Balance 531 / 531 100 / 100 Intake: IV Fluids 100 / 100 Water for inj. (sterile) 10 ML 1 / 1 As IV .STK-MED ONE Rx#: [id number] Ofirmev 1,000 mg/100 ml 1,000 100 / 100 mg In 100 ml @ 400 mls/hr IVPB ONCE ONE Rx#:[id number] Ancef Premix DUPLEX 2,000 mg In 50 / 50 50 ml @ 100 mls/hr IVPB Q8HR HYUN Rx#:[id number] Oral 480 / 480 Other: Meal Breakfast Percent of Meal Consumed 50% # Voids 1 Weight 100.9 kg Patient Weight 02/08/17 23:59 Weight 100.9 kg - Labs CBC & BMP: 02/08/17 05:28 Labs: Abnormal lab results Hgb 10.6 g/dL (11.5-15.4) L 02/08/17 05:28 Hct 32.1 % (35.3-44.9) L 02/08/17 05:28 - VTE Documentation of Mechanical Device: Venous foot pump, device Consult Discharge Plan - Plan Referrals: Kevin Monreal MD [Primary Care Provider] -
[2017-02-08] MEDS: Metoprolol XL (24 HR) Succ 25 MG TAB.ER.24H PO SCH (08:41)
== END 2017-02-08 10:44 | disposition home or self-care (01) | DRG 483 ==
LOC: SAMDAY 12:31 → 3NENU 18:11
PROVIDERS: ADMIT Orthopaedic Surgery; ATTEND Orthopaedic Surgery

== ENCOUNTER 2017-12-14 15:24 | Observation (INO) ==
--- NOTE | 2017-12-14 18:53 | Emergency Department Note ---
Disposition Clinical Impression: Nausea and vomiting Disposition: Admitted As Inpatient Condition: Fair General Adult HPI - General Chief complaint: ED Nausea/Vomiting/Diarrhea Stated complaint: N/V/D, Fever S/P upper jaw surgery Time Seen by Provider: 12/14/17 18:43 Source: patient Mode of arrival: ambulatory Limitations: no limitations Nursing Notes Reviewed: Yes Vital Signs Reviewed: Yes - History of Present Illness HPI Narrative: Patient is a 37-year-old female with a past medical history of anxiety and right sided jaw replacement surgery presents immersed her for evaluation of nausea, vomiting and diarrhea. The patient states that her symptoms have been going on for approximately 4 days. States that she is not able to tolerate any by mouth in her emesis occurs whenever she does try to eat food. States that her emesis is nonbloody and nonbilious. She also complains of diarrhea with food consumption states that she has multiple bowel movements throughout the day that are nonbloody. Denies any abdominal pain or urinary symptoms. States that she was concerned that these symptoms are related to her jaw surgery which occurred approximately 2 weeks ago, however she spoke with her surgeon for jaw he states that this does not sound like a rejection reaction or infection. Pain Scale: 9 - Related Data Home Medications Medication Instructions Recorded Confirmed Melatonin 10 mg PO HS 12/14/17 12/14/17 OxyCODONE Immed Rel [Roxicodone 10 10 mg PO Q6H PRN 12/14/17 12/14/17 MG] diazePAM [Valium] 2 mg PO TID PRN 12/14/17 12/14/17 Previous Rx's Medication Instructions Recorded Ondansetron ODT [Zofran ODT] 4 mg SL Q8HR PRN 30 Days #90 12/16/17 tab.rapdis Allergies Allergy/AdvReac Type Severity Reaction Status Date / Time lorazepam [From Ativan] Allergy Hallucinati Verified 12/14/17 22:03 ng butalbital [From Fioricet] AdvReac Anxiety Verified 12/14/17 22:03 caffeine [From Fioricet] AdvReac Anxiety Verified 12/14/17 22:03 droperidol AdvReac Agitated Verified 12/14/17 22:03 etomidate AdvReac Seizure Verified 12/14/17 22:03 gabapentin AdvReac Headache Verified 12/14/17 22:03 ketamine AdvReac Hallucinati Verified 12/14/17 22:03 ng metoclopramide [From Reglan] AdvReac Agitated Verified 12/14/17 22:03 prochlorperazine AdvReac Agitated Verified 12/14/17 22:03 [From Compazine] All systems ED: reviewed and negative except as stated. Review of Systems: As Per HPI Constitutional: Denies: fever, chills Cardiovascular: Denies: chest pain, palpitations, dyspnea on exertion Respiratory: Denies: cough, dyspnea, wheezes Gastrointestinal: Reports: nausea, vomiting, diarrhea. Denies: abdominal pain, constipation, hematemesis, melena, hematochezia Genitourinary: Denies: urgency, dysuria Musculoskeletal: Denies: back pain, neck pain Integumentary: Denies: rash Neurological: Denies: headache, weakness Past Medical History - Past Medical History Attestation: Yes The following information was validated with the patient. 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 EYES: PERRL, no scleral icterus. NOSE: The nose is normal in appearance without rhinorrhea RESP: Normal chest excursion with respiration; breath sounds clear and equal bilaterally; no wheezes, rhonchi, or rales CARD: Regular rhythm, without murmurs, rub or gallop ABD: Non-distended; non-tender, soft,without rigidity, rebound or guarding SKIN: Normal for age and race; warm and dry; no apparent lesions Course Course Narrative: Patient was seen here and discharged approximately 2:00 AM this morning in which she is seen by the ER physician as recommended admission to hospital however the hospitalist agreed due to the patient's normal lab workup. Recommended symptomatically control the patient was discharged. Her lab work done at that time showed no signs of dehydration and electrolyte abnormalities and normal CBC and urine with a mild amount of protein. Patient states that she is seen by her primary care physician today and she is given a shot of Phenergan as well as a shot of Toradol for pain she states that her symptoms still been uncontrolled. Plan at this time is to evaluate the patient with repeat labs to compare to yesterday's labs of the abdomen as well as a liter of fluids and dose of Zofran. She will also undergo a CT of abdomen and pelvis given her recurring symptoms without resolution. Vital Signs Temperature 98.4 F 12/14/17 15:36 Pulse Rate 90 12/14/17 15:36 Respiratory Rate 18 12/14/17 15:36 Blood Pressure 144/114 12/14/17 15:36 O2 Sat by Pulse Oximetry 96 12/14/17 15:36 Temperature 98.2 F 12/16/17 11:38 Pulse Rate 89 12/16/17 11:38 Respiratory Rate 17 12/16/17 11:38 Blood Pressure 118/81 12/16/17 12:03 O2 Sat by Pulse Oximetry 97 12/16/17 11:38 Oxygen Delivery Oxygen Delivery Room Air Medical Decision Making - Medical Records Medical records reviewed: Yes I reviewed the patient's medical records. - Lab Data Result diagrams: 12/16/17 06:12 12/16/17 06:12 Lab Results 12/14/17 12/14/17 12/14/17 Range/Units 19:07 19:07 19:37 WBC 8.7 (4.3-11.1) K/mcL RBC 4.55 (3.82-4.97) M/mcL Hgb 13.6 (11.5-15.4) g/dL Hct 41.8 (35.3-44.9) % MCV 91.9 (83.0-100.0) fL MCH 29.9 (28.0-33.3) pg MCHC 32.5 (31.6-35.5) g/dL RDW 14.6 H (11.5-14.5) % Plt Count 271 (140-400) K/mcL MPV 10.7 (9.4-12.4) fL Immature Gran % 0.2 (0-4) % Seg Neutrophils % 66.5 % Lymphocytes % 25.1 % Monocytes % 6.5 % Eosinophils % 1.2 % Basophils % 0.5 % Neutrophils # 5.8 (1.6-8.9) K/mcL Lymphocytes # 2.2 (0.6-4.6) K/mcL Monocytes # 0.6 (0.0-1.3) K/mcL Eosinophils # 0.1 (0.0-0.6) K/mcL Basophils # 0.0 (0.0-0.2) K/mcL Platelet Estimate Normal (Normal) Sodium 137 (136-145) mEq/L Potassium 4.2 (3.5-5.1) mEq/L Chloride 104 (98-107) mEq/L Carbon Dioxide 24 (23-29) mEq/L BUN 10 (6-20) mg/dL Creatinine 0.51 L (0.60-1.20) mg/dL Est GFR ( Amer) > 60 (> 60) Est GFR (Non-Af Amer) > 60 (> 60) BUN/Creatinine Ratio 20 (6-26) Glucose 92 (70-105) mg/dL Calculated Osmolality 283 (280-300) Calcium 9.8 (8.6-10.3) mg/dL Total Bilirubin 0.4 (0.3-1.0) mg/dL Direct Bilirubin 0.1 (0.0-0.2) mg/dL Indirect Bilirubin 0.3 (0.0-1.2) mg/dL AST 28 (13-39) Units/L ALT 28 (7-52) Units/L Alkaline Phosphatase 68 (34-104) Units/L Serum Total Protein 7.7 (6.4-8.9) g/dL Albumin 4.8 (3.5-5.7) g/dL Globulin 2.9 (2.4-3.5) g/dL Albumin/Globulin Ratio 1.7 (1.1-2.2) Lipase 26 (11-82) Units/L Urine Color Yellow (Yellow) Urine Clarity Clear (Clear) Urine pH 6.0 (5.0-8.0) pH Units Ur Specific [place] 1.028 H (1.010-1.025) Urine Protein Negative (Neg-Trace) mg/dL Urine Glucose (UA) Normal (Normal) mg/dL Urine Ketones Trace H (Negative) mg/dL Urine Blood Negative (Negative) Urine Nitrite Negative (Negative) Urine Bilirubin Negative (Negative) Urine Urobilinogen Normal (Normal) mg/dL Ur Leukocyte Esterase Trace H (Negative) Urine Microscopic RBC 0-3 (0-3) per hpf Urine Microscopic WBC 3-5 H (0-3) per hpf Ur Squamous Epith Cells Many H (None-Few) per lpf Urine Bacteria None Seen (None-Few) per hpf Hyaline Casts None Seen (None-Few) per lpf Urine Test (Negative) 12/14/17 Range/Units 19:37 WBC (4.3-11.1) K/mcL RBC (3.82-4.97) M/mcL Hgb (11.5-15.4) g/dL Hct (35.3-44.9) % MCV (83.0-100.0) fL MCH (28.0-33.3) pg MCHC (31.6-35.5) g/dL RDW (11.5-14.5) % Plt Count (140-400) K/mcL MPV (9.4-12.4) fL Immature Gran % (0-4) % Seg Neutrophils % % Lymphocytes % % Monocytes % % Eosinophils % % Basophils % % Neutrophils # (1.6-8.9) K/mcL Lymphocytes # (0.6-4.6) K/mcL Monocytes # (0.0-1.3) K/mcL Eosinophils # (0.0-0.6) K/mcL Basophils # (0.0-0.2) K/mcL Platelet Estimate (Normal) Sodium (136-145) mEq/L Potassium (3.5-5.1) mEq/L Chloride (98-107) mEq/L Carbon Dioxide (23-29) mEq/L BUN (6-20) mg/dL Creatinine (0.60-1.20) mg/dL Est GFR ( Amer) (> 60) Est GFR (Non-Af Amer) (> 60) BUN/Creatinine Ratio (6-26) Glucose (70-105) mg/dL Calculated Osmolality (280-300) Calcium (8.6-10.3) mg/dL Total Bilirubin (0.3-1.0) mg/dL Direct Bilirubin (0.0-0.2) mg/dL Indirect Bilirubin (0.0-1.2) mg/dL AST (13-39) Units/L ALT (7-52) Units/L Alkaline Phosphatase (34-104) Units/L Serum Total Protein (6.4-8.9) g/dL Albumin (3.5-5.7) g/dL Globulin (2.4-3.5) g/dL Albumin/Globulin Ratio (1.1-2.2) Lipase (11-82) Units/L Urine Color (Yellow) Urine Clarity (Clear) Urine pH (5.0-8.0) pH Units Ur Specific [place] (1.010-1.025) Urine Protein (Neg-Trace) mg/dL Urine Glucose (UA) (Normal) mg/dL Urine Ketones (Negative) mg/dL Urine Blood (Negative) Urine Nitrite (Negative) Urine Bilirubin (Negative) Urine Urobilinogen (Normal) mg/dL Ur Leukocyte Esterase (Negative) Urine Microscopic RBC (0-3) per hpf Urine Microscopic WBC (0-3) per hpf Ur Squamous Epith Cells (None-Few) per lpf Urine Bacteria (None-Few) per hpf Hyaline Casts (None-Few) per lpf Urine Test Negative (Negative) S.B.A.R. - S.Charlene.A.RCindy Situation: Demographics, MOA Background: Presenting Complaint, Relevant PMH, Meds, & Allergies Assessment: Vital Signs, Course and respsone to treatment, Exam Concerns, Patient/Family Expectation, Pertinant Lab Results, Outstanding Labs Recommendation: Barrier(s) to disposition, Recommendation based on pending studies, treatments, or consults S.B.A.R. Report Given to: Kalyani Puente Repor Time: 19:51 Attestation Statement - Attestation Attestation: I, Martin Auguste DO, examined this patient [id number] and my medical decision-making was reviewed with Dr. Dominic Lopez, Resident Physician. I agree with the documented findings, disposition and treatment plan as described except to the extent set forth below. Please see my progress notes for details.
[2017-12-14] MEDS ORDERED: 0.9 % Sodium Chloride 1,000 ML IVC ONE (19:13)
[2017-12-14] MEDS ORDERED: Ondansetron 4 MG/2 ML VIAL IVP ONE ×2 (19:13→22:57)
[2017-12-14 19:49] LABS: Basophils % 0.5 %; Eosinophils # 0.1 K/mcL (0.0-0.6); Eosinophils % 1.2 %; Hematocrit 41.8 % (35.3-44.9); Hemoglobin 13.6 g/dL (11.5-15.4); Immature Granulocytes % 0.2 % (0-4); Lymphocytes # 2.2 K/mcL (0.6-4.6); Lymphocytes % 25.1 %; Mean Corpuscular HGB Conc 32.5 g/dL (31.6-35.5); Mean Corpuscular Hemoglobin 29.9 pg (28.0-33.3); Mean Corpuscular Volume 91.9 fL (83.0-100.0); Mean Platelet Volume 10.7 fL (9.4-12.4); Monocytes # 0.6 K/mcL (0.0-1.3); Monocytes % 6.5 %; Neutrophils # 5.8 K/mcL (1.6-8.9); Platelet Count 271 K/mcL (140-400); Red Blood Count 4.55 M/mcL (3.82-4.97); Red Cell Distribution Width 14.6 % (11.5-14.5); Segmented Neutrophils % 66.5 %
[2017-12-14 19:55] LABS: Bilirubin,Urine Negative (Negative); Blood,Urine Negative (Negative); Clarity,Urine Clear (Clear); Color,Urine Yellow (Yellow); Glucose,Urine (UA) Normal (Normal); Ketones,Urine Trace mg/dL (Negative); Leukocyte Esterase,Urine Trace (Negative); Nitrite,Urine Negative (Negative); Protein,Urine Negative (Neg-Trace); Specific Gravity,Urine 1.028 (1.010-1.025); Urobilinogen,Urine Normal (Normal)
[2017-12-14 19:58] LABS: Bacteria,Urine None Seen per hpf (None-Few); Hyaline Casts,Urine None Seen per lpf (None-Few); RBC,Urine 0-3 per hpf (0-3); Squamous Epithelial Cell,Urine Many per lpf (None-Few)
[2017-12-14 20:04] LABS: Platelet Estimate Normal (Normal)
[2017-12-14 20:06] LABS: Alanine Aminotransferase 28 Units/L (7-52); Albumin 4.8 g/dL (3.5-5.7); Albumin/Globulin Ratio 1.7 (1.1-2.2); Alkaline Phosphatase 68 Units/L (34-104); Aspartate Amino Transferase 28 Units/L (13-39); BUN/Creatinine Ratio 20 (6-26); Bilirubin,Direct 0.1 mg/dL (0.0-0.2); Bilirubin,Indirect 0.3 mg/dL (0.0-1.2); Bilirubin,Total 0.4 mg/dL (0.3-1.0); Blood Urea Nitrogen 10 mg/dL (6-20); Calcium 9.8 mg/dL (8.6-10.3); Carbon Dioxide 24 mEq/L (23-29); Chloride 104 mEq/L (98-107); Globulin 2.9 g/dL (2.4-3.5); Glucose 92 mg/dL (70-105); Osmolality,Calculated 283 (280-300); Potassium 4.2 mEq/L (3.5-5.1); Sodium 137 mEq/L (136-145); Total Protein 7.7 g/dL (6.4-8.9); eGFR For Non-African Americans > 60 (> 60)
[2017-12-14] MEDS ORDERED: Ondansetron ODT 4 MG TAB.RAPDIS SL ONE (20:24)
--- NOTE | 2017-12-14 20:34 | Emergency Department Note ---
Disposition Clinical Impression: Nausea and vomiting Disposition: Admitted As Inpatient Condition: Fair Referrals: Tavo Ovalle [Primary Care Provider] - Forms: ED Satisfaction Letter Time of Disposition: 21:52 General Adult HPI - General Chief complaint: ED Nausea/Vomiting/Diarrhea Stated complaint: N/V/D, Fever S/P upper jaw surgery Time Seen by Provider: 12/14/17 18:43 Source: patient Mode of arrival: ambulatory Limitations: no limitations - History of Present Illness Pain Scale: 9 - Related Data Home Medications Medication Instructions Recorded Confirmed Valium 08/04/17 Previous Rx's Medication Instructions Recorded Oxycodone HCl 5 mg PO TID 2 Days #6 tablet 08/04/17 Amoxicillin [Amoxil] 500 mg PO BID 10 Days #20 capsule 08/19/17 Cyclobenzaprine [Flexeril] 10 mg PO TID PRN 7 Days #21 tablet 08/19/17 HYDROcodone/Acet 7.5/325 mg [[place] 1 tab PO Q6-8H PRN 3 Days #12 08/19/17 7.5-325 mg] tablet Ondansetron ODT [Zofran ODT] 4 mg SL Q4HR #10 tab.rapdis 12/14/17 Allergies Allergy/AdvReac Type Severity Reaction Status Date / Time lorazepam [From Ativan] Allergy Hallucinati Verified 08/28/17 22:01 ng butalbital [From Fioricet] AdvReac Anxiety Verified 08/04/17 16:02 caffeine [From Fioricet] AdvReac Anxiety Verified 08/04/17 16:02 droperidol AdvReac Agitated Verified 08/04/17 16:02 etomidate AdvReac Seizure Verified 08/04/17 16:02 gabapentin AdvReac Headache Verified 08/04/17 16:02 ketamine AdvReac Hallucinati Verified 08/04/17 16:02 ng metoclopramide [From Reglan] AdvReac Agitated Verified 08/04/17 16:02 prochlorperazine AdvReac Agitated Verified 08/04/17 16:02 [From Compazine] Constitutional: Denies: fever, chills Cardiovascular: Denies: chest pain, palpitations, dyspnea on exertion Respiratory: Denies: cough, dyspnea, wheezes Gastrointestinal: Reports: nausea, vomiting, diarrhea. 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 - Social History Smoking Status: Never smoker Smokeless Tobacco Status: No Alcohol use: Reports: none Drug use: Reports: none Physical Exam - General Limitations: no limitations General appearance: alert, in no apparent distress Course Vital Signs Temperature 98.4 F 12/14/17 15:36 Pulse Rate 90 12/14/17 15:36 Respiratory Rate 18 12/14/17 15:36 Blood Pressure 144/114 12/14/17 15:36 O2 Sat by Pulse Oximetry 96 12/14/17 15:36 Temperature 98.4 F 12/14/17 19:07 Pulse Rate 90 12/14/17 19:07 Respiratory Rate 18 12/14/17 19:07 Blood Pressure 144/114 12/14/17 19:07 O2 Sat by Pulse Oximetry 96 12/14/17 19:07 Oxygen Delivery Oxygen Delivery Room Air Medical Decision Making - Lab Data Result diagrams: 12/14/17 19:07 12/14/17 19:07 Lab Results 12/14/17 12/14/17 12/14/17 Range/Units 19:07 19:07 19:37 WBC 8.7 (4.3-11.1) K/mcL RBC 4.55 (3.82-4.97) M/mcL Hgb 13.6 (11.5-15.4) g/dL Hct 41.8 (35.3-44.9) % MCV 91.9 (83.0-100.0) fL MCH 29.9 (28.0-33.3) pg MCHC 32.5 (31.6-35.5) g/dL RDW 14.6 H (11.5-14.5) % Plt Count 271 (140-400) K/mcL MPV 10.7 (9.4-12.4) fL Immature Gran % 0.2 (0-4) % Seg Neutrophils % 66.5 % Lymphocytes % 25.1 % Monocytes % 6.5 % Eosinophils % 1.2 % Basophils % 0.5 % Neutrophils # 5.8 (1.6-8.9) K/mcL Lymphocytes # 2.2 (0.6-4.6) K/mcL Monocytes # 0.6 (0.0-1.3) K/mcL Eosinophils # 0.1 (0.0-0.6) K/mcL Basophils # 0.0 (0.0-0.2) K/mcL Platelet Estimate Normal (Normal) Sodium 137 (136-145) mEq/L Potassium 4.2 (3.5-5.1) mEq/L Chloride 104 (98-107) mEq/L Carbon Dioxide 24 (23-29) mEq/L BUN 10 (6-20) mg/dL Creatinine 0.51 L (0.60-1.20) mg/dL Est GFR ( Amer) > 60 (> 60) Est GFR (Non-Af Amer) > 60 (> 60) BUN/Creatinine Ratio 20 (6-26) Glucose 92 (70-105) mg/dL Calculated Osmolality 283 (280-300) Calcium 9.8 (8.6-10.3) mg/dL Total Bilirubin 0.4 (0.3-1.0) mg/dL Direct Bilirubin 0.1 (0.0-0.2) mg/dL Indirect Bilirubin 0.3 (0.0-1.2) mg/dL AST 28 (13-39) Units/L ALT 28 (7-52) Units/L Alkaline Phosphatase 68 (34-104) Units/L Serum Total Protein 7.7 (6.4-8.9) g/dL Albumin 4.8 (3.5-5.7) g/dL Globulin 2.9 (2.4-3.5) g/dL Albumin/Globulin Ratio 1.7 (1.1-2.2) Lipase 26 (11-82) Units/L Urine Color Yellow (Yellow) Urine Clarity Clear (Clear) Urine pH 6.0 (5.0-8.0) pH Units Ur Specific [place] 1.028 H (1.010-1.025) Urine Protein Negative (Neg-Trace) mg/dL Urine Glucose (UA) Normal (Normal) mg/dL Urine Ketones Trace H (Negative) mg/dL Urine Blood Negative (Negative) Urine Nitrite Negative (Negative) Urine Bilirubin Negative (Negative) Urine Urobilinogen Normal (Normal) mg/dL Ur Leukocyte Esterase Trace H (Negative) Urine Microscopic RBC 0-3 (0-3) per hpf Urine Microscopic WBC 3-5 H (0-3) per hpf Ur Squamous Epith Cells Many H (None-Few) per lpf Urine Bacteria None Seen (None-Few) per hpf Hyaline Casts None Seen (None-Few) per lpf Urine Test (Negative) 12/14/17 Range/Units 19:37 WBC (4.3-11.1) K/mcL RBC (3.82-4.97) M/mcL Hgb (11.5-15.4) g/dL Hct (35.3-44.9) % MCV (83.0-100.0) fL MCH (28.0-33.3) pg MCHC (31.6-35.5) g/dL RDW (11.5-14.5) % Plt Count (140-400) K/mcL MPV (9.4-12.4) fL Immature Gran % (0-4) % Seg Neutrophils % % Lymphocytes % % Monocytes % % Eosinophils % % Basophils % % Neutrophils # (1.6-8.9) K/mcL Lymphocytes # (0.6-4.6) K/mcL Monocytes # (0.0-1.3) K/mcL Eosinophils # (0.0-0.6) K/mcL Basophils # (0.0-0.2) K/mcL Platelet Estimate (Normal) Sodium (136-145) mEq/L Potassium (3.5-5.1) mEq/L Chloride (98-107) mEq/L Carbon Dioxide (23-29) mEq/L BUN (6-20) mg/dL Creatinine (0.60-1.20) mg/dL Est GFR ( Amer) (> 60) Est GFR (Non-Af Amer) (> 60) BUN/Creatinine Ratio (6-26) Glucose (70-105) mg/dL Calculated Osmolality (280-300) Calcium (8.6-10.3) mg/dL Total Bilirubin (0.3-1.0) mg/dL Direct Bilirubin (0.0-0.2) mg/dL Indirect Bilirubin (0.0-1.2) mg/dL AST (13-39) Units/L ALT (7-52) Units/L Alkaline Phosphatase (34-104) Units/L Serum Total Protein (6.4-8.9) g/dL Albumin (3.5-5.7) g/dL Globulin (2.4-3.5) g/dL Albumin/Globulin Ratio (1.1-2.2) Lipase (11-82) Units/L Urine Color (Yellow) Urine Clarity (Clear) Urine pH (5.0-8.0) pH Units Ur Specific [place] (1.010-1.025) Urine Protein (Neg-Trace) mg/dL Urine Glucose (UA) (Normal) mg/dL Urine Ketones (Negative) mg/dL Urine Blood (Negative) Urine Nitrite (Negative) Urine Bilirubin (Negative) Urine Urobilinogen (Normal) mg/dL Ur Leukocyte Esterase (Negative) Urine Microscopic RBC (0-3) per hpf Urine Microscopic WBC (0-3) per hpf Ur Squamous Epith Cells (None-Few) per lpf Urine Bacteria (None-Few) per hpf Hyaline Casts (None-Few) per lpf Urine Test Negative (Negative) Attestation Statement - Attestation Attestation: I, Martin Auguste DO, examined this patient [id number] and my medical decision-making was reviewed with Dr. Dominic Lopez, Resident Physician. I agree with the documented findings, disposition and treatment plan as described except to the extent set forth below. Please see my progress notes for details. 37-year-old female presents emergency room with complaint of poorly controlled nausea vomiting and diarrhea. Patient was seen her last night and had workup completed this time. There is a discussion about possible admission for intractable nausea and vomiting. 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 She denies any of those complaints or issues at this point. She denies any fevers or chills. No chest pain or shortness of breath. She has been tolerating by mouth food and fluid up until several days ago and then persistently has gotten worse. She has not traveled outside the country. She has not started a new medications. She has not had any trauma or injury. Patient will have screening labs completed again here today along with fluids and nausea medication. CT the abdomen will be added on today along with urinalysis. Patient is a history of ovarian cyst but she is unable to differentiate between discomfort she is having her today. She points the right lower quadrant of the abdomen where she has pain and symptoms this point. Vital signs remain stable. Patient has not had any episodes of emesis while here in the emergency room. She is resting in bed laying left side with no point tenderness guarding or rigidity to the abdominal wall. We will control symptoms and then determine disposition. Patient is comfortable potentially be discharged home as long she does not have any other issues with emesis while here. We will continue monitoring symptoms once a definitive evaluation has been established. See detailed documentation the physical exam, medical intervention, medical decision-making and disposition in the resident physician' s note. No critical care provider the patient's treatment course at this time. [address] imaging is unremarkable and her labs are normal. Patient was given oral pain medication as well as nausea medication after 2 doses of IV nausea medication and then provided. Patient immediately started to throw up after taking fluids and medication for symptomatic control. She is unable to tolerate by mouth's at this time for unknown etiology. Could be some aspect of her inability to take her pain medication versus a viral-like syndrome. Patient does not have any acute signs of dehydration but has what appears to be intractable nausea and vomiting that is refractory to outpatient management as well as oral and IV antiemetic medications. Hospitalist was contacted for admission. Patient will be treated here in the hospital setting at the symptoms are controlled.
[2017-12-14 20:42] LABS: Lipase 26 Units/L (11-82)
[2017-12-14] MEDS ORDERED: *HR* HYDROcodone/Acet 5/325 mg TABLET PO ONE (20:48)
[2017-12-14] MEDS ORDERED: Naloxone 0.4 MG/ML INJ IVP PRN (21:56)
[2017-12-14] MEDS ORDERED: Ketorolac 15 MG/ML VIAL IVP PRN (21:56)
[2017-12-14] MEDS ORDERED: Ondansetron 4 MG/2 ML VIAL ONE (22:59)
[2017-12-15] MEDS: D5% in 0.45% NACL 1,000 ML IVC SCH ×2 (00:36→16:03)
[2017-12-15] MEDS: *HR* Heparin 5,000 UNIT/ML VIAL SQ SCH ×4 (00:37→21:25)
[2017-12-15] MEDS: *HR* LORazepam 2 MG/ML VIAL IVP PRN ×4 (02:32→22:08)
[2017-12-15] MEDS: OXYCODONE Oral CONC 10 MG/0.5 ML ORAL.SYG SL PRN ×4 (02:33→22:09)
[2017-12-15] MEDS: Ondansetron ODT 4 MG TAB.RAPDIS SL PRN ×2 (05:57→15:52)
--- NOTE | 2017-12-15 05:57 | Internal Med History&Physical ---
Date of Encounter: 12/15/17 Time of Encounter: 02:00 Internal Medicine - H&P: HPI Chief complaint: Intractable Nausea/Vomiting History of present illness: Ms. 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 Of note, Patient was seen here and discharged approximately 2:00 AM this morning for the same symptoms. She was given 2 L of fluids and deemed stable for discharge. Patient states she felt initially better after going home, however, after attempting to eat, she again could not keep food down. Her symptoms of nausea, vomiting and diarrhea began last . She reports 10 episodes of diarrhea that gradually became more loose; as well as 6 episodes of non-bloody, nonbilious emesis. She endorses vague abdominal but no fever or chills. Patient has received antibiotics within the last 30 days round the time of her jaw surgery at the end of October. She denies any blood or mucus in her stool. Patient states that her did have similar symptoms of diarrhea but resolved after a few days. Currently patient denies any fever, chills, shortness of breath, or chest pain. Patient found to be hemodynamically stable. Labs on admission again unremarkable. Past Med Surg Social Fam HX - Past Medical History Medical history: other Additional medical history: Selma-Danlos syndrome, dystonia, sweets syndrome Psychiatric history: anxiety - Past Surgical History Surgical History: orthopedic, other, other Additional surgical history: bilat shoulder replacements, right jaw replaement, tubal ligation - Social History Smoking Status: Never smoker Smokeless Tobacco Status: No Alcohol use: none Drug use: none - Family History Father History Unknown: Yes Hx Family Cardiac Disorders: Yes Mother History Unknown: Yes Internal Medicine - H&P: Meds Melatonin 10 mg PO HS 12/14/17 [History] OxyCODONE Immed Rel [Roxicodone 10 MG] 10 mg PO Q6H PRN 12/14/17 [History] diazePAM [Valium] 2 mg PO TID PRN 12/14/17 [History] 3 Allergy/AdvReac Type Severity Reaction Status Date / Time lorazepam [From Ativan] Allergy Hallucinati Verified 12/14/17 22:03 ng butalbital [From Fioricet] AdvReac Anxiety Verified 12/14/17 22:03 caffeine [From Fioricet] AdvReac Anxiety Verified 12/14/17 22:03 droperidol AdvReac Agitated Verified 12/14/17 22:03 etomidate AdvReac Seizure Verified 12/14/17 22:03 gabapentin AdvReac Headache Verified 12/14/17 22:03 ketamine AdvReac Hallucinati Verified 12/14/17 22:03 ng metoclopramide [From Reglan] AdvReac Agitated Verified 12/14/17 22:03 prochlorperazine AdvReac Agitated Verified 12/14/17 22:03 [From Compazine] All Systems PM: A 10-system review of systems was performed and is negative for pertinent findings except as documented above in the HPI. - Constitutional Constitutional: no chills, no fever(s), no night sweats - EENT Eyes: no change in vision, no discharge, no pain, no photophobia Ears: no ear discharge, no ear pain, no tinnitus Nose, mouth and throat: no dysphagia, no nasal discharge, no neck pain, no sore throat - Cardiovascular Cardiovascular ROS IM: no chest pain, no diaphoresis, no dyspnea, no lightheadedness, no palpitations, no syncope - Respiratory Respiratory: no cough, no dyspnea, no wheezing, no excessive phlegm production - Gastrointestinal Gastrointestinal: no abdominal pain, no diarrhea, no hematemesis, no hematochezia, no melena, no nausea, no vomiting - Genitourinary Genitourinary: no change in urinary stream, no dysuria, no flank pain, no hematuria - Musculoskeletal Musculoskeletal ROS IM: no numbness, no tingling - Integumentary Integumentary IM: no rash, no unusual bruising - Neurological Neurological ROS: no confusion, no convulsions, no focal weakness, no numbness, no tingling, no tremor(s) - Hematologic/Lymphatic Hematologic/Lymphatic: no easy bruising - Constitutional Vitals: Temp Pulse Resp BP Pulse Ox 98.3 F 64 16 134/88 96 12/15/17 04:07 12/15/17 04:07 12/15/17 04:07 12/15/17 04:07 12/15/17 04:07 Exam: General: Alert and oriented Skin:Normal color, no rash, no lesions. HEENT:EOM, pupils equal, round and reactive. Cardiovascular:Normal S1 & S2, no rubs, murmurs or gallops. No JVD. Pulse regular. Lungs:Normal breath sounds, no wheezes or crackles. Abdomen:Soft, non-tender, no rigidity. Extremities:No deformity, no edema or tenderness, no joint swelling or clubbing. Neurological:Normal cognition and motor skills. Pulses:Carotid and radial pulses normal +2. Rest of the physical exam is non contributory Internal Med - H&P Results - Labs CBC & Chem 7: 12/15/17 05:38 12/15/17 05:38 - Assessment and plan (1) Nausea and vomiting Current Visit: Yes Status: Acute Assessment and plan: Intractable nausea and vomiting of unclear etiology. Continue anti-medics; supportive care. Consider GI consult if symptoms do not improve. Qualifiers: Vomiting type: unspecified Qualified Code(s): R11.2 - Nausea with vomiting , unspecified (2) Diarrhea Current Visit: No Status: Acute Assessment and plan: Diarrhea the setting of recent antibiotic use. Patient does not have any fever or white count however, given duration of symptoms we will obtain a GI panel. Continue supportive care. Qualifiers: Diarrhea type: unspecified type Qualified Code(s): R19.7 - Diarrhea, unspecified (3) Anxiety Current Visit: Yes Status: Acute Assessment and plan: Ativan PRN - Time Spent With Patient Total time spent is greater than 50% in coordination of care (as documented) at patient's floor/unit and/or counseling patient:
[2017-12-15 06:47] LABS: Basophils % 0.4 %; Eosinophils # 0.3 K/mcL (0.0-0.6); Eosinophils % 3.5 %; Hemoglobin 12.3 g/dL (11.5-15.4); Immature Granulocytes % 0.2 % (0-4); Lymphocytes # 3.7 K/mcL (0.6-4.6); Lymphocytes % 40.4 %; Mean Corpuscular HGB Conc 33.2 g/dL (31.6-35.5); Mean Corpuscular Hemoglobin 29.4 pg (28.0-33.3); Mean Corpuscular Volume 88.5 fL (83.0-100.0); Mean Platelet Volume 10.2 fL (9.4-12.4); Monocytes # 0.8 K/mcL (0.0-1.3); Monocytes % 8.7 %; Neutrophils # 4.2 K/mcL (1.6-8.9); Platelet Count 337 K/mcL (140-400); Red Blood Count 4.18 M/mcL (3.82-4.97); Red Cell Distribution Width 14.5 % (11.5-14.5); Segmented Neutrophils % 46.8 %
[2017-12-15 07:14] LABS: Alanine Aminotransferase 21 Units/L (7-52); Albumin 4.2 g/dL (3.5-5.7); Albumin/Globulin Ratio 1.8 (1.1-2.2); Alkaline Phosphatase 60 Units/L (34-104); Aspartate Amino Transferase 21 Units/L (13-39); BUN/Creatinine Ratio 16 (6-26); Bilirubin,Total 0.5 mg/dL (0.3-1.0); Blood Urea Nitrogen 8 mg/dL (6-20); Calcium 8.9 mg/dL (8.6-10.3); Carbon Dioxide 25 mEq/L (23-29); Chloride 105 mEq/L (98-107); Globulin 2.4 g/dL (2.4-3.5); Glucose 88 mg/dL (70-105); Magnesium 1.8 mg/dL (1.6-2.6); Osmolality,Calculated 284 (280-300); Potassium 3.2 mEq/L (3.5-5.1); Sodium 138 mEq/L (136-145); Total Protein 6.6 g/dL (6.4-8.9); eGFR For Non-African Americans > 60 (> 60)
[2017-12-15] MEDS ORDERED: Potassium Chloride 40 MEQ, Lidocaine 1% 2 ML in D5% in Water 500 ML IVPB ONE (16:07)
--- NOTE | 2017-12-15 16:08 | Internal Med Progress Note ---
Hospitalist Progress Note - Encounter Date of Encounter: 12/15/17 Time of Encounter: 16:06 - Subjective Interval History: patient seen and examined at bedside today. She is continuing to endorse nausea. She denies any vomiting or diarrhea, reporting her last episodes of vomiting and diarrhea were yesterday evening. She reports that she is still unable to eat without nausea. She does report some relief with antiemetics. She denies any additional concerns at this time. - Exam Vitals: Temp Pulse Resp BP Pulse Ox 98.1 F 75 16 123/84 98 12/15/17 15:17 12/15/17 15:17 12/15/17 15:17 12/15/17 15:17 12/15/17 15:17 Exam: General: Alert and oriented 3 Skin:Normal color, no rash, no lesions. HEENT:EOM, pupils equal, round and reactive. Cardiovascular:Normal S1 & S2, no rubs, murmurs or gallops. No JVD. Pulse regular. Lungs:Normal breath sounds, no wheezes or crackles. Abdomen:Soft, non-tender, no rigidity. Extremities:No deformity, no edema or tenderness, no joint swelling or clubbing. Neurological:Normal cognition and motor skills. Pulses:Carotid and radial pulses normal +2. Rest of the physical exam is non contributory - Assessment and Plan (1) Nausea and vomiting Current Visit: Yes Status: Acute Assessment and Plan: Intractable nausea and vomiting of unclear etiology. Continue anti-medics; supportive care. Consider GI consult if symptoms do not improve. 12/15- nausea persists, no episodes of emesis overnight or throughout today. Diarrhea has subsided. Still unable to tolerate oral intake. recently displaying GI s/sx. Consider gastroenteritis as cause. Continue supportive care. Add promethazine 12.5mg Q6H PRN. Continue IVF (2) Diarrhea Current Visit: No Status: Resolved (3) Anxiety Current Visit: Yes Status: Chronic Assessment and Plan: does not appear anxious at this time (4) Hypokalemia Current Visit: Yes Status: Acute Assessment and Plan: K 3.2 today replete DVT Prophylaxis: sc heparin - Time Spent with Patient Total time spent is greater than 50% in coordination of care (as documented) at patient's floor/unit and/or counseling patient: less than 15 minutes Plan of Care Discussed with: patient Internal Medicine: Result - Labs CBC & Chem 7: 12/15/17 05:38 12/15/17 05:38 Labs: Short CBC 12/15/17 Range/Units 05:38 WBC 9.1 (4.3-11.1) K/mcL Hgb 12.3 (11.5-15.4) g/dL Hct 37.0 (35.3-44.9) % Plt Count 337 (140-400) K/mcL Neutrophils # 4.2 (1.6-8.9) K/mcL BMP 12/15/17 05:38 Sodium 138 Potassium 3.2 L Chloride 105 Carbon Dioxide 25 BUN 8 Creatinine 0.49 L Glucose 88 Calcium 8.9 Liver Function 12/15/17 Range/Units 05:38 Total Bilirubin 0.5 (0.3-1.0) mg/dL AST 21 (13-39) Units/L ALT 21 (7-52) Units/L Alkaline Phosphatase 60 (34-104) Units/L Albumin 4.2 (3.5-5.7) g/dL Consult Discharge Plan - Plan Referrals: Tavo Ovalle [Primary Care Provider] - (1) Nausea and vomiting Qualifiers: Vomiting type: unspecified (2) Diarrhea Qualifiers: Diarrhea type: unspecified type Qualified Code(s): R19.7 - Diarrhea, unspecified
[2017-12-15] MEDS ORDERED: Ondansetron 4 MG/2 ML VIAL IVP PRN (16:11)
[2017-12-15] MEDS: *HR* Promethazine 25 MG/ML VIAL IVP PRN ×2 (16:41→22:08)
[2017-12-15] MEDS: Pantoprazole 40 MG VIAL IVP SCH (21:24)
[2017-12-16] MEDS: *HR* Heparin 5,000 UNIT/ML VIAL SQ SCH (05:45)
[2017-12-16] MEDS: *HR* LORazepam 2 MG/ML VIAL IVP PRN ×2 (05:45→12:44)
[2017-12-16] MEDS: OXYCODONE Oral CONC 10 MG/0.5 ML ORAL.SYG SL PRN ×2 (05:54→12:08)
[2017-12-16 07:04] LABS: Basophils % 0.6 %; Eosinophils # 0.3 K/mcL (0.0-0.6); Eosinophils % 4.1 %; Hematocrit 37.5 % (35.3-44.9); Hemoglobin 12.5 g/dL (11.5-15.4); Immature Granulocytes % 0.3 % (0-4); Lymphocytes # 3.2 K/mcL (0.6-4.6); Lymphocytes % 44.7 %; Mean Corpuscular HGB Conc 33.3 g/dL (31.6-35.5); Mean Corpuscular Hemoglobin 29.6 pg (28.0-33.3); Mean Corpuscular Volume 88.7 fL (83.0-100.0); Mean Platelet Volume 10.1 fL (9.4-12.4); Monocytes # 0.7 K/mcL (0.0-1.3); Monocytes % 9.8 %; Neutrophils # 2.9 K/mcL (1.6-8.9); Platelet Count 306 K/mcL (140-400); Red Blood Count 4.23 M/mcL (3.82-4.97); Red Cell Distribution Width 14.5 % (11.5-14.5); Segmented Neutrophils % 40.5 %
[2017-12-16 07:27] LABS: BUN/Creatinine Ratio 14 (6-26); Blood Urea Nitrogen 9 mg/dL (6-20); Carbon Dioxide 26 mEq/L (23-29); Chloride 104 mEq/L (98-107); Glucose 95 mg/dL (70-105); Osmolality,Calculated 286 (280-300); Potassium 3.5 mEq/L (3.5-5.1); Sodium 139 mEq/L (136-145); eGFR For Non-African Americans > 60 (> 60)
[2017-12-16] MEDS: Pantoprazole 40 MG VIAL IVP SCH (08:25)
[2017-12-16 12:03] VITALS: BP 118/81
[2017-12-16] MEDS: *HR* Promethazine 25 MG/ML VIAL IVP PRN (12:08)
--- NOTE | 2017-12-16 14:43 | Discharge Summary ---
- NOTES TO OUTPATIENT PROVIDER Notes to Outpatient Provider: Presented with intractable n/v/d. Etiology unclear, thought to be gastroenteritis as she reports also had some GI symptoms. Improved with GI rest and antiemetics. Also having pain s/p mandibular surgery. Please discuss careful opiate use; she is being d/c'd with a 3-day supply 2/2 post-op pain. Orders not resulted at time of discharge: Pending orders 12/17/17 04:00 Basic Metabolic Panel AM 0400 Complete Blood Count [HEME] AM 0400 12/18/17 04:00 Basic Metabolic Panel AM 0400 Complete Blood Count [HEME] AM 0400 Date of Encounter: 12/16/17 Time of Encounter: 14:41 - Discharge Diagnosis (1) Nausea and vomiting Priority: Primary Status: Resolved Assessment and Plan: Intractable nausea and vomiting of unclear etiology. Continue anti-medics; supportive care. Consider GI consult if symptoms do not improve. 12/16- nausea improving today, able to tolerate small amount of oral intake. no episodes of emesis overnight or throughout today. Diarrhea has subsided. Still unable to tolerate oral intake. recently displaying GI s/sx. Likely N/V/D the result of Acute gastroenteritis, Continue supportive care at d /c Qualifiers: Vomiting type: unspecified Vomiting Intractability: intractable Qualified Code(s): R11.2 - Nausea with vomiting, unspecified (2) Diarrhea Priority: Secondary Status: Resolved Qualifiers: Diarrhea type: unspecified type Qualified Code(s): R19.7 - Diarrhea, unspecified (3) Anxiety Priority: Secondary Status: Chronic (4) Hypokalemia Priority: Secondary Status: Acute (5) Gastroenteritis Priority: Secondary Status: Acute Hospital course: Ms. Justice is a 37 year old female with a past history of Selma-Danlos syndrome and recent right mandibular replacement on November 26. She presents with intractable nausea and vomiting and diarrhea. Treated for gastroenteritis with IV fluids, antibiotics and GI rest. Patient improving gradually. Able to tolerate small amount of food today without vomiting. She is being discharged with oral antiemetics. Follow-up appointment set for today at 4 PM with primary care physician. Discharge discussed with: patient, nurse - Time Spent with Patient Total time spent providing and/or coordinating discharge services: Less than 30 minutes - Discharge Medications Prescriptions: Ondansetron ODT [Zofran ODT] 4 mg SL Q8HR PRN 30 Days #90 tab.rapdis PRN Reason: Nausea And Vomiting Home Medications: Melatonin 10 mg PO HS 12/14/17 [History] OxyCODONE Immed Rel [Roxicodone 10 MG] 10 mg PO Q6H PRN 12/14/17 [History] diazePAM [Valium] 2 mg PO TID PRN 12/14/17 [History] Ondansetron ODT [Zofran ODT] 4 mg SL Q8HR PRN 30 Days #90 tab.rapdis 12/16/17 [ Rx] Allergies/Adverse Reactions: 3 Allergy/AdvReac Type Severity Reaction Status Date / Time lorazepam [From Ativan] Allergy Hallucinati Verified 12/14/17 22:03 ng butalbital [From Fioricet] AdvReac Anxiety Verified 12/14/17 22:03 caffeine [From Fioricet] AdvReac Anxiety Verified 12/14/17 22:03 droperidol AdvReac Agitated Verified 12/14/17 22:03 etomidate AdvReac Seizure Verified 12/14/17 22:03 gabapentin AdvReac Headache Verified 12/14/17 22:03 ketamine AdvReac Hallucinati Verified 12/14/17 22:03 ng metoclopramide [From Reglan] AdvReac Agitated Verified 12/14/17 22:03 prochlorperazine AdvReac Agitated Verified 12/14/17 22:03 [From Compazine] Date of admission: 12/14/17 22:04 Primary care physician: Tavo Ovalle Discharging clinician: Wesley Hall Anticipated date of discharge: 12/16/17 - Constitutional Vitals: Temp Pulse Resp BP Pulse Ox 98.2 F 89 17 118/81 97 12/16/17 11:38 12/16/17 11:38 12/16/17 11:38 12/16/17 12:03 12/16/17 11:38 General appearance: Present: A&O X 3 Exam: . - Head Head exam: Present: atraumatic, normocephalic - Eye Eye exam: Present: PERRL, conjuntiva pink, sclera anicteric Pupils: Present: PERRL - Neck Neck exam general surgery: Present: supple, trachea midline. Absent: lymphadenopathy - Respiratory Respiratory exam: Present: CTAB. Absent: accessory muscle use, rales, rhonchi, wheezes - Cardiovascular Cardiovascular exam: Present: RRR, +S1, +S2. Absent: diastolic murmur, gallop, rubs, systolic murmur - GI/Abdominal GI/Abdominal exam: Present: normal bowel sounds, soft, no peritoneal signs. Absent: distended, tenderness - Extremities Exam Extremities exam: Present: warm, radial pulses palpable and symmetrical. Absent : calf tenderness, cyanotic, pedal edema - Neurological Exam Neurological exam: Present: CN II-XII intact, oriented X3, no focal deficits. Absent: pronater drift, facial droop, speech deficit - Skin Skin exam: Present: dry, intact - Patient Status Disposition: Home, Self-Care Condition: Fair Functional capacity at discharge: independent ambulation Overall status at discharge: patient is progressing back to baseline - Discharge Instructions Follow Up With: Tavo Ovalle [Primary Care Provider] - (Your appointment has been requested, our offices will call you with an appointment date and time. If you do not hear from us, please feel free to call and schedule a follow up appointment. Thank You. ) - Diet and Activity Activity: increase activity as tolerated, resume usual activities as tolerated Diet: other (bland diet, advance as tolerated)
== END 2017-12-16 15:24 | disposition home or self-care (01) ==
LOC: 3BNU 15:24 → EMEROOARM 15:24 → 3BNU 23:59
PROVIDERS: ADMIT Internal Medicine; ATTEND Internal Medicine